=== PATIENT | male | born 2000 | race Two or more races ===

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

== ENCOUNTER 2019-02-12 09:00 | Emergency (ER) | payer MEDICAID ==
[~2019-02-12] VITALS: Ht 182.9 cm; Wt 117.9 kg
--- NOTE | 2019-02-12 09:00 | NUR ---
ED Nurse Note:pt. came with skin redness snd rash on bilateral forarms, was seen by ER
--- NOTE | 2019-02-12 09:20 | Emergency Room Report ---
History of Present Illness General Chief Complaint: Skin Rash/Abscess Source: Patient Present Illness HPI Disclaimer: Please note that this report is being documented using DRAGON technology. This can lead to erroneous entry secondary to incorrect interpretation by the dictating instrument. HPI: 19-year-old male presents for evaluation of rash over the arms. He states this is happened multiple times and describes a vesicular rash in linear patterns over the upper extremities. He was helping his father in the garden states he is allergic to plants that he keeps in the backyard. He was in the emergency department with similar presentation other times. He stated he responded well to steroids and cream. He denies any wheezing, vomiting, palpitations, chest pain, tightness, any other symptoms at this time. Exposure happened yesterday. Has been applying hot water which feels better but he feels it is making it spread. No other symptoms at this time. PMH: Denies PSH: Denies Allergies: Certain plants, unspecified Social Hx: Denies tobacco or alcohol use Allergies: Coded Allergies: No Known Allergies (Unverified , 08/08/12) Nursing Documentation-PMH Past Medical History: No Stated History Hx Asthma: Yes Review of Systems All Other Systems: negative except mentioned in HPI Physical Exam Vital Signs Date Time Temp Pulse Resp B/P (MAP) Pulse Ox O2 Delivery O2 Flow Rate FiO2 02/12/19 09:04 98.1 75 18 147/85 (105) 97 Room Air General: Awake and alert, no acute distress HEENT: NC/AT. EOMI. Cardiovascular: RRR. S1 and S2 normal. No murmur appreciated Resp: Normal work of breathing. No cough, wheezing or crackles appreciated Abdomen: Abdomen is soft, nondistended. Nontender Skin: Vesicular, linear pattern on an erythematous base of the upper extremities stopping just below the shirt sleeves at the biceps. No significant edema. No breakdown, Nikolsky negative MSK: Normal tone and bulk. Moving all extremities. No obvious deformity. Neuro: Awake and alert. Mentating appropriately. Medical Decision Making Diagnostic Impression: Primary Impression: Contact dermatitis and eczema due to plant ER Course 19-year-old male presents for evaluation of rash of the upper extremities. This consistent with a contact dermatitis after exposure to a plant with the patient has had in the past. He has responded well in the past to steroid creams. He is requesting IV Benadryl however do not see an indication for this at this time. Will prescribe hydrocortisone, oral Benadryl and a short course of prednisone. He will follow-up with his PMD. Discussed reasons to return to the emergency department. He understands and agrees with treatment plan. Last Vital Signs Date Time Temp Pulse Resp B/P (MAP) Pulse Ox O2 Delivery O2 Flow Rate FiO2 02/12/19 09:04 98.1 75 18 147/85 (105) 97 Room Air Disposition: HOME, SELF-CARE Condition: Stable Scripts Prednisone* (PREDNISONE*) 20 Mg Tablet 40 MG ORAL DAILY for 3 Days, #6 TAB Prov: Israel Cotton MD 02/12/19 Hydrocortisone Acetate (ANTI-ITCH) 28 Gm Oint...g. 28 GM TP TID for 5 Days, GM Prov: Israel Cotton MD 02/12/19 Diphenhydramine Hcl* (DIPHENHYDRAMINE HCL*) 25 Mg Capsule 25 MG ORAL Q6H PRN for Itching, #30 CAP 0 Refills Prov: Israel Cotton MD 02/12/19 Israel Cotton MD Feb 12, 2019 09:20
[2019-02-12] MEDS ORDERED: ANTI-ITCH28 GM TP (09:24)
[2019-02-12] MEDS ORDERED: DIPHENHYDRAMINE25 M1 ORAL (09:24)
[2019-02-12] MEDS ORDERED: PREDNISONE20 MG ORAL (09:24)
--- NOTE | 2019-02-12 09:35 | NUR ---
ER DISCHARGE NOTE: Patient is cleared to be discharged per ERMD, pt is aox4, on room air, with stable vital signs. pt was given dc and prescription instructions, pt was able to verbalize understanding, pt is able to ambulate with steady gait. pt took all belongings.
[2019-02-12 10:04] VITALS: BP 147/85
[2019-02-12 10:10] VITALS: BP 147/85
== END 2019-02-12 09:40 | disposition home or self-care (01) ==
LOC: EMR 09:20
DX: L25.5 Unspecified contact dermatitis due to plants, except food (principal); J45.909 Unspecified asthma, uncomplicated
CPT/HCPCS: 99282